=== PATIENT | female | born 1990 | race Caucasian/White ===

== ENCOUNTER 2018-01-03 09:37 | Emergency (ER) | payer BC, SELFPAY ==
[2018-01-03 10:53] LABS: Absolute Lymphocytes (CBC) 2.9 K/uL (0.7-4.9); Absolute Monocytes 0.6 K/uL (0.1-1.3); Absolute Neutrophil 3.4 K/uL (1.8-8.0); Basophils % 0.6 % (0-1.3); Eosinophils % 0.9 % (0-4.4); Hematocrit 41.4 % (36.0-45.0); Lymphocytes % 41.5 % (15.3-44.8); MCH 29.5 pg (27.0-35.0); MCV 84.9 fL (80-100); MPV 10.1 fL (7.6-11.3); Monocytes % 7.9 % (3.3-12.3); RBC Red Blood Cell Count 4.88 M/uL (3.86-4.86)
[2018-01-03] MEDS ORDERED: LORAZEPAM 1 MG TABLET ONE (11:08)
[2018-01-03 11:15] LABS: Potassium 3.7 mEq/L (3.6-5.0)
--- NOTE | 2018-01-03 12:26 | EKG ---
Test Date: 2018-01-03 Test Time: 10:06:12 Medical Technician Assistant: KAUSHAL MEASUREMENT RESULTS: Intervals: Rate: 76 ME: 132 QRSD: 82 QT: 422 QTc: 474 Richey: P: 79 ME: 132 QRS: 69 T: 65 INTERPRETIVE STATEMENTS: Normal sinus rhythm with sinus arrhythmia Normal ECG No previous ECG available for comparison Electronically Signed On 01-03-18 12:25:39 CDT by Kenneth Phelan
[2018-01-03 13:17] LABS: Urine Blood NEGATIVE (NEG); Urine Glucose NEGATIVE (NEG); Urine Protein NEGATIVE (NEG); Urine Specific Gravity 1.015 (1.005-1.030); Urine pH 7.5 (5.0-7.0)
--- NOTE | 2018-01-03 13:18 | RAD REPORT ---
EXAM DESCRIPTION: RAD - Chest Pa And Lat (2 Views) - 01/03/2018 12:48 pm CLINICAL HISTORY: Chest pain, chest discomfort COMPARISON: None. TECHNIQUE: PA and lateral views of the chest were obtained. FINDINGS: The lungs are normal volume. Patient has a mild pectus excavatum deformity the lower chest . No peripheral mass or consolidation. No failure findings. Lung markings are minimally prominent at each base. Baseline for the patient is not known. Acute infiltrate is doubtful. Clinical history does indicate suspicion for pneumonia. Heart size is normal and central vasculature is within normal li mits. No pleural effusion or pneumothorax seen. No acute bony finding noted. No aortic abnormality . IMPRESSION: No mass, consolidation or failure. Minimal prominence of lung markings in each base suspected to be baseline for the patient. Minimal gabriel ng base pneumonia is unlikely given the provided history.
--- NOTE | 2018-01-03 13:21 | ER ---
Nurse's Notes [facility] Name: Daniela Longo Age: 27 yrs Sex: Female : 1990 Arrival Date: 01/03/2018 Time: 09:37 Bed 16 Private MD: None, None Diagnosis: Chest pain, unspecified Presentation: 01/03 09:51 Presenting complaint: Patient states: feels like she was having an anxiety attack while iw at work, having epigastric pain, heart racing, tingling in hands, tachypnea , pt states she been under more stress lately r/t trying to get and work. Transition of care: patient was not received from another setting of care. Onset of symptoms was January 03, 2018. Risk Assessment: Do you want to hurt yourself or someone else?. Initial Sepsis Screen: Does the patient meet any 2 criteria? No. Patient's initial sepsis screen is negative. Does the patient have a suspected source of infection? No. Patient's initial sepsis screen is negative. Care prior to arrival: None. 09:51 Method Of Arrival: Wheelchair iw 09:51 Acuity: CATALINA 3 iw Triage Assessment: 10:05 General: Appears uncomfortable, Behavior is anxious, restless. Pain: Complains of pain ch in diaphragm and xyphoid area Pain currently is 8 out of 10 on a pain scale. 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 - Social history:: Smoking status: Patient/guardian denies using tobacco. Screenin:39 Abuse screen: Denies threats or abuse. Denies injuries from another. Nutritional ch screening: No deficits noted. Tuberculosis screening: No symptoms or risk factors identified. Fall Risk None identified. Assessment: 10:36 Reassessment: Patient appears in no apparent distress at this time. Patient and/or ch family updated on plan of care and expected duration. Pain level reassessed. Patient is alert, oriented x 3, equal unlabored respirations, skin warm/dry/pink. pt starts hyperventilating after I start her IV. pt placed with Neb mask on her face, toelrated well. states the numbness and tingling improved. Pain: Complains of pain in chest and xyphoid area and diaphragm Pain radiates to chest Pain currently is 3 out of 10 on a pain scale. Pain began suddenly. Neuro: No deficits noted. Cardiovascular: Heart tones S1 S2 present Capillary refill < 3 seconds in bilateral fingers toes Clubbing of nail beds is absent Patient's skin is warm and dry. Pulses are all present. Edema is absent. Respiratory: Airway is patent Respiratory effort is even, unlabored, pt alternated between hyper ventilating and appropriate respirations for age. pt states it seems like anything can trigger her. GI: No signs and/or symptoms were reported involving the gastrointestinal system. : No signs and/or symptoms were reported regarding the genitourinary system. Derm: Skin is pink, warm \T\ dry. 11:12 Reassessment: Patient appears in no apparent distress at this time. Patient and/or ch family updated on plan of care and expected duration. Pain level reassessed. pt is hyperventilating in room. Shameka notified, pt medicated per orders. 12:35 Reassessment: Patient appears in no apparent distress at this time. Patient and/or ch family updated on plan of care and expected duration. Pain level reassessed. Patient is alert, oriented x 3, equal unlabored respirations, skin warm/dry/pink. Patient states feeling better. Patient states symptoms have improved. 13:04 Reassessment: Patient appears in no apparent distress at this time. Patient and/or ch family updated on plan of care and expected duration. Pain level reassessed. Patient is alert, oriented x 3, equal unlabored respirations, skin warm/dry/pink. Patient denies pain at this time. Patient states feeling better. Patient states symptoms have improved. Vital Signs: 10:10 BP 151 / 98; Pulse 113; Resp 42; Temp 99; Pulse Ox 98% on R/A; Pain 6/10; ch 10:39 BP 135 / 85; Pulse 81; Resp 15; Temp 97.8; Pulse Ox 99% on R/A; Pain 0/10; ch 11:12 Pulse 111; Resp 38; Pulse Ox 100% on R/A; ch 12:09 BP 120 / 71; Pulse 78; Resp 13; Pulse Ox 100% on R/A; mh5 13:04 BP 112 / 68; Pulse 57; Resp 12; Temp 98.3; Pulse Ox 99% on R/A; Pain 0/10; ch 10:39 pt is resting queitly, room air with no mask on. ch 11:12 pt c/o feeling fingers and toes tinling, hands cramping, pt edicated on slowing her ch breathing down ED Course: 09:37 Patient arrived in ED. mr 09:38 None, None is Private Physician. mr 09:54 Triage completed. iw 09:58 Allison Griffin, [facility] kb 09:58 Aly Trimble MD is Attending Physician. kb 10:10 Arm band placed on left wrist. Patient placed in an exam room, on a stretcher, on ch cooler deliverer, on pulse oximetry. EKG completed in triage. Results shown to MD. 10:34 Asha Grubbs, RN is Primary Nurse. ch 10:36 EKG done, by ED staff, reviewed by Allison CAMARA. 5 10:39 No apparent distress. Resting quietly. ch 10:39 Patient has correct armband on for positive identification. Placed in gown. Bed in low ch position. Call light in reach. Side rails up X2. Adult w/ patient. funeral home attendant on. Pulse ox on. NIBP on. Warm blanket given. Pillow given. 10:39 No provider procedures requiring assistance completed. Inserted saline lock: 18 gauge ch in right antecubital area, using aseptic technique. Blood collected. 12:35 X-ray completed. Patient tolerated procedure well. Patient moved back from radiology. jb2 12:36 Chest Pa And Lat (2 Views) XRAY In Process Unspecified. EDMS 13:34 IV discontinued, intact, bleeding controlled, No redness/swelling at site. Pressure ch dressing applied. Patient maintains SpO2 saturation greater than 95% on room air. Administered Medications: 11:11 Drug: Ativan 1 mg Route: PO; ch Outcome: 13:20 Discharge ordered by MD. kb 13:34 Discharged to home ambulatory. ch 13:34 Condition: good 13:34 Discharge instructions given to patient, Instructed on discharge instructions, follow up and referral plans. Demonstrated understanding of instructions, follow-up care. 13:35 Patient left the ED. Signatures: Dispatcher [employer] Allison Marquez, JAX RILEY-Asha Rodriguez, Maria Victoria Goode RN, ch, Jesse jb2 Yolanda Montes De Oca RN RN Maria Victoria [facility]
--- NOTE | 2018-01-03 13:21 | EDPHYS ---
Physician Documentation [facility] Name: Daniela Longo Age: 27 yrs Sex: Female : 1990 Arrival Date: 01/03/2018 Time: 09:37 Bed 16 Private MD: None, None ED Physician Aly Trimble HPI: 01/03 10:55 This 27 yrs old Female presents to ER via Wheelchair with complaints of Chest kb Pain. 10:55 The patient presents to the emergency department with anxiety, stress. Onset: The kb symptoms/episode began/occurred just prior to arrival. Associated signs and symptoms: Pertinent positives; anxiety, chest pain, shortness of breath, Pertinent negatives: abdominal pain, chills, delusions, depression, fever, hallucinations, headache, homicidal ideation, nausea, night sweats, palpitations, paranoia, substance abuse, suicide ideation, tremor, vomiting. Severity of symptoms: At their worst the symptoms were moderate in the emergency department the symptoms are unchanged. The patient has experienced a previous episode. The patient has not recently seen a physician. 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 States "I've had this before and know it's anxiety. I've been really stressed lately, but I don't normally have these symptoms.". 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 - Social history:: Smoking status: Patient/guardian denies using tobacco. ROS: 10:53 Constitutional: Negative for fever, chills, and weight loss, ENT: Negative for injury, kb pain, and discharge, Neck: Negative for injury, pain, and swelling, Abdomen/GI: Negative for abdominal pain, nausea, vomiting, diarrhea, and constipation, Back: Negative for injury and pain, : Negative for injury, bleeding, discharge, and swelling, MS/Extremity: Negative for injury and deformity, Skin: Negative for injury, rash, and discoloration. 10:53 Cardiovascular: Positive for chest pain, Negative for edema, orthopnea, palpitations, paroxysmal nocturnal dyspnea. 10:53 Respiratory: Positive for shortness of breath, Negative for cough, dyspnea on exertion, hemoptysis, orthopnea, pleurisy, sputum production, wheezing. 10:53 Psych: Positive for anxiety. Exam: 10:53 Constitutional: This is a well developed, well nourished patient who is awake, alert, kb and in no acute distress. Head/Face: Normocephalic, atraumatic. ENT: Nares patent. No nasal discharge, no septal abnormalities noted. Tympanic membranes are normal and external auditory canals are clear. Oropharynx with no redness, swelling, or masses, exudates, or evidence of obstruction, uvula midline. Mucous membranes moist. Neck: Trachea midline, no thyromegaly or masses palpated, and no cervical lymphadenopathy. Supple, full range of motion without nuchal rigidity, or vertebral point tenderness. No Meningismus. Chest/axilla: Normal chest wall appearance and motion. Nontender with no deformity. No lesions are appreciated. Cardiovascular: Regular rate and rhythm with a normal S1 and S2. No gallops, murmurs, or rubs. Normal PMI, no JVD. No pulse deficits. Respiratory: Lungs have equal breath sounds bilaterally, clear to auscultation and percussion. No rales, rhonchi or wheezes noted. No increased work of breathing, no retractions or nasal flaring. Abdomen/GI: Soft, non-tender, with normal bowel sounds. No distension or tympany. No guarding or rebound. No evidence of tenderness throughout. Back: No spinal tenderness. No costovertebral tenderness. Full range of motion. Skin: Warm, dry with normal turgor. Normal color with no rashes, no lesions, and no evidence of cellulitis. MS/ Extremity: Pulses equal, no cyanosis. Neurovascular intact. Full, normal range of motion. Neuro: Awake and alert, GCS 15, oriented to person, place, time, and situation. Cranial nerves II-XII grossly intact. Motor strength 5/5 in all extremities. Sensory grossly intact. Cerebellar exam normal. Normal gait. 10:53 Respiratory: pt was hyperventilating during initial exam, was able to control breathing with coaching. Vital Signs: 10:10 BP 151 / 98; Pulse 113; Resp 42; Temp 99; Pulse Ox 98% on R/A; Pain 6/10; ch 10:39 BP 135 / 85; Pulse 81; Resp 15; Temp 97.8; Pulse Ox 99% on R/A; Pain 0/10; ch 11:12 Pulse 111; Resp 38; Pulse Ox 100% on R/A; ch 12:09 BP 120 / 71; Pulse 78; Resp 13; Pulse Ox 100% on R/A; mh5 13:04 BP 112 / 68; Pulse 57; Resp 12; Temp 98.3; Pulse Ox 99% on R/A; Pain 0/10; ch 10:39 pt is resting queitly, room air with no mask on. ch 11:12 pt c/o feeling fingers and toes tinling, hands cramping, pt edicated on slowing her ch breathing down MDM: 09:59 Patient medically screened. kb 10:53 Data reviewed: vital signs, nurses notes. Data interpreted: Pulse oximetry: on room air kb is 99 %. Interpretation: normal. 12:54 Counseling: I had a detailed discussion with the patient and/or guardian regarding: the kb historical points, exam findings, and any diagnostic results supporting the discharge/admit diagnosis, lab results, radiology results, the need for outpatient follow up, a family practitioner, to return to the emergency department if symptoms worsen or persist or if there are any questions or concerns that arise at home. 13:21 ED course: Pt feels better and is ready to go home. kb 01/03 10:08 Order name: CBC with Diff; Complete Time: 10:57 kb 01/03 10:08 Order name: Basic Metabolic Panel; Complete Time: 11:16 kb 01/03 10:08 Order name: D-Dimer; Complete Time: 11:23 kb 01/03 10:08 Order name: Troponin (emerg Dept Use Only); Complete Time: 11:23 kb 01/03 11:10 Order name: Urine Dipstick--Ancillary (enter results); Complete Time: 13:18 bd 01/03 11:10 Order name: Urine --Ancillary (enter results); Complete Time: 13:18 bd 01/03 10:08 Order name: EKG; Complete Time: 10:09 kb 01/03 10:08 Order name: EKG - Nurse/Tech; Complete Time: 11:12 kb 01/03 10:08 Order name: IV Start; Complete Time: 11:11 kb 01/03 10:08 Order name: Urine Dipstick-Ancillary (obtain specimen); Complete Time: 11:11 kb 01/03 10:08 Order name: Urine Test (obtain specimen); Complete Time: 11:11 kb 01/03 11:53 Order name: Chest Pa And Lat (2 Views) XRAY; Complete Time: 13:19 kb Administered Medications: 11:11 Drug: Ativan 1 mg Route: PO; Disposition: 13:43 Co-signature as Attending Physician, lAy Trimble MD. rn Disposition: 01/03/18 13:20 Discharged to Home. Impression: Chest pain, unspecified. - Condition is Stable. - Discharge Instructions: Panic Attacks, [id number]. - Medication Reconciliation Form, Thank You Letter, Antibiotic Education, Prescription Opioid Use, Work release form form. - Follow up: Emergency Department; When: As needed; Reason: Worsening of condition. Follow up: Private Physician; When: 2 - 3 days; Reason: Recheck today's complaints, Continuance of care, Re-evaluation by your physician. Signatures: Dispatcher [employer] EDMS Allison Griffin, VOICER-C VOICER-Ckb Asha Grubbs RN RN Yolanda Montes De Oca RN RN Aly Trimble MD MD kinesiology internship: (The following items were deleted from the chart) 13:35 13:20 01/03/2018 13:20 Discharged to Home. Impression: Chest pain, unspecified. Condition is Stable. Forms are Medication Reconciliation Form, Thank You Letter, Antibiotic Education, Prescription Opioid Use. Follow up: Emergency Department; When: As needed; Reason: Worsening of condition. Follow up: Private Physician; When: 2 - 3 days; Reason: Recheck today's complaints, Continuance of care, Re-evaluation by your physician. kb
== END 2018-01-03 13:35 | disposition home or self-care (01) ==
LOC: EDBD 09:37 → ER 09:37
DX: R07.9 Chest pain, unspecified (principal); F41.9 Anxiety disorder, unspecified; Z88.0 Allergy status to penicillin
CPT/HCPCS: 36415; 71046; 80048; 81003; 81025; 84484; 85025; 85379; 93005; 99285